=== PATIENT | female | born 1980 | race Caucasian/White ===

== ENCOUNTER 2016-10-29 08:19 | Emergency (ER) | payer OTHER ==
--- NOTE | ~2016-10-29 | CR173 ---
[facility] A Service of [facility] & [facility] RADIOLOGY TEXT RESULTS PATIENT: BAYRON FRAZIER LOCATION: [facility] : [birth year] UNIT #: [id number] AGE: [address]: Amrita Bah SEX: F ORDER DR: [id number] [facility] [address] [place], [place] [address] [id number] E MR#: [id number] Acc #: [id number] NAME: BAYRON FRAZIER : 1980 SEX: F STUDY DATE/TIME: 10/29/2016 8:21 UNIT: [facility] ROOM: STUDY DESCRIPTION: CR Knee 3 Views Rt Attending Physician: Amrita Bah P.A.-C. Ordering Physician: Amrita Bah P.A.-C. Primary Care Physician: No Primary Care Physician MEDICAL IMAGING REPORT This report is preliminary unless electronic signature is present EXAM Right knee INDICATIONS Right knee pain beginning today. Patient fell. FINDINGS AP lateral and sunrise views of the right knee were obtained. There is no fracture or effusion. The bones are normal. IMPRESSION Normal right knee series Dictated by... Edin Anderson M.D. THIS IS AN ELECTRONICALLY VERIFIED REPORT Edin Anderson M.D. at 10/30/2016 3:06 PM VAL/tabatha TD: 10/30/2016 00:45 JOB #: [id number] MEDICAL IMAGING REPORT COPY
[~2016-10-29 08:19] MED LIST: ALBUTEROL17 G1 IH; ALBUTEROL17 GM INH; AMOXIL500 MG PO; BACTRIM DS TABL1 TA1 PO; BACTRIM DS TABL1 TAB PO; BENTYL20 MG PO; CIPRO PO; DELSYM30 MG/5 M1 PO; DULCOLAX5 MG PO; FLEXERIL10 MG PO; FLONASE16 GM; IBUPROFEN800 MG PO; KEFLEX PO; KEFLEX500 M1 PO; KETOPROFEN PO; LORTAB 5/500 TA1 TA1 PO; MEDROL4 MG/DOSE- PO; MOBIC PO; NAPROSYN375 MG PO; NAPROSYN500 MG PO; NO MEDICATIONS; PEN-VEE K PO; PREDNISONE PO; TESSALON200 MG PO; TYLOX 5/500 CAP1 CAP PO; ULTRAM PO; VIBRAMYCIN100 M1 DOB; VICODIN 5/500 T1 TAB PO; VOLTAREN50 MG PO; ZOFRAN PO; ZYRTEC PO; ZYRTEC10 M2 PO; [UNRECOGNIZED DRUG - OTHER] PO
== END 2016-10-29 09:00 | disposition home or self-care (01) ==
LOC: CED 08:19
DX: S83.421A Sprain of lateral collateral ligament of right knee, initial encounter (principal); W19.XXXA Unspecified fall, initial encounter; Y92.009 Unspecified place in unspecified non-institutional (private) residence as the place of occurrence of the external cause
CPT/HCPCS: 29505; 73562; 99283

== ENCOUNTER 2016-11-21 17:18 | Observation (INO) | payer OTHER ==
--- NOTE | ~2016-11-21 | EKG ---
PATIENT: BAYRON FRAZIER UNIT #: [id number] Ventricular Rate: 58 BPM Atrial Rate: 58 BPM P-R Interval: 154 ms QRS Duration: 96 ms Q-T Interval: 456 ms QTC Calculation(Bezet): 447 ms P Magazine: 31 degrees Calculated R Magazine: 15 degrees Calculated T Magazine: 36 degrees Diagnosis Line: Sinus bradycardia Diagnosis Line: Otherwise normal ECG Diagnosis Line: When compared with ECG of 21-NOV-2016 13:14, Diagnosis Line: (unconfirmed) Diagnosis Line: No significant change was found Diagnosis Line: Confirmed by REECE JERNIGAN MD ([id number]) on 11/22/2016 Diagnosis Line: 11:32:54 PM INTERPRETING MD: DELON SAHU
--- NOTE | ~2016-11-21 | DS ---
Unit #: [id number] #: [id number] Patient: BAYRON FRAZIER [id number] [address] [address] [id number] I MR#: [id number] NAME: BAYRON FRAZIER ROOM: 55 Age: 36 Sex: F Admission Date: 11/21/2016 : 1980 Discharge Date: 11/22/2016 Attending Physician: Jered Acuna M.D. Primary Care Physician: No Primary Care Physician DISCHARGE SUMMARY This is a 36-year-old white female patient admitted with chest pains. She has no associated nausea, vomiting or dyspnea. She felt lightheaded. She has a history of hypertension and asthma. Home medications include hydrochlorothiazide and albuterol. SOCIAL HISTORY She smoked a pack of cigarettes a day for about 20 years. At the time of admission, blood pressure 136/87, heart rate 70 per minute. HEART - S1, S2 normal. LUNGS clear. ABDOMEN soft. No edema. INITIAL IMPRESSION 1. Chest pain, musculoskeletal in origin. 2. Hypertension. 3. Obesity. 4. Tobacco abuse. Acute MO is ruled out. The patient underwent a stress Cardiolite study. Study showed no aortic ischemia or infarct. Echocardiogram showed normal LV function. At this time, she will be discharged home on her previous home medications. DIET Healthy heart diet. ACTIVITY As tolerated. FOLLOWUP Follow up with PCP in two weeks. Discharge instructions took more than 30 minutes. Dictated by... Ramu Weaver Unit #: [id number] #: [id number] Patient: BAYRON FRAZIER TD: 11/23/2016 12:42 JOB #: [id number] DISCHARGE SUMMARY Page 1 of 1 X Tom Caballero MD X DISCHARGE SUMMARY
--- NOTE | ~2016-11-21 | BMI ---
[facility] Nutrition Therapy DATE: 11/22/16 Patient: BAYRON FRAZIER Physician: LESLIE Address: [address] [place] [address] Room/Bed: [address] [place] [address], Zip: [place] [address] Admit Date: 11/21/16 Date of : [birth year] Height: 5 4 Weight: 249 113.3 HIGH BMI NOTE: DX: 36 yo female admitted for CP ANTHROPOMETRICS: Ht: 5'4" Wt: 113.2 kg (249#) BMI: 42.9 DIET: NPO INTERVENTION: 1. NPO RECOMMENDATIONS: 1. Once medically feasible, advance diet as indicated to HH to promote gradual weight loss towards healthy BMI (19.0-25.0) or +/-10%IBW. RD will f/u per protocol. Respectfully, Sugar Moulton, [employer] Keiko Omer MS, RD, LD Food and Nutritional Services [facility] cc: client file
--- NOTE | ~2016-11-21 | EKG ---
PATIENT: BAYRON FRAZIER UNIT #: [id number] Ventricular Rate: 64 BPM Atrial Rate: 64 BPM P-R Interval: 146 ms QRS Duration: 82 ms Q-T Interval: 430 ms QTC Calculation(Bezet): 443 ms P [place]: 37 degrees Calculated R [place]: 41 degrees Calculated T [place]: 29 degrees Diagnosis Line: Normal sinus rhythm Diagnosis Line: Normal ECG Diagnosis Line: When compared with ECG of 21-NOV-2016 13:14, Diagnosis Line: (unconfirmed) Diagnosis Line: No significant change was found Diagnosis Line: Confirmed by REECE JERNIGAN MD ([id number]) on 11/22/2016 Diagnosis Line: 11:32:05 PM INTERPRETING MD: DELON SAHU
--- NOTE | ~2016-11-21 | ST ---
Unit #: [id number] #: [id number] Patient: BAYRON FRAZIER [id number] [address] [address] [id number] I MR#: [id number] NAME: BAYRON FRAZIER : 1980 SEX: F STUDY DATE/TIME: 11/22/2016 UNIT: C5B ROOM: 557 STUDY DESCRIPTION: Attending Physician: Jered Acuna M.D. CARDIOLOGY REPORT EXAM Nuclear study. DESCRIPTION OF PROCEDURE AND FINDINGS Baseline EKG normal sinus rhythm, nonspecific ST and T changes. Resting heart rate 65 per minute and blood pressure 158/93. This 36-year-old patient received 0.4 mg of Lexiscan intravenously during the test. No ischemic changes noted. No arrhythmias noted. Blood pressure was stable. INTERPRETATION 1. Nondiagnostic EKG during Lexiscan. 2. No arrhythmias noted. 3. Stable blood pressure during the test. 4. Correlate with a Cardiolite study. 1. Dictated by... Ramu Weaver/cristiano TD: 11/22/2016 16:59 JOB #: [id number] CARDIOLOGY REPORT Page 1 of 1 X Tom Caballero MD CARDIOLOGY REPORT
--- NOTE | ~2016-11-21 | TH ---
Unit #: [id number] #: [id number] Patient: BAYRON FRAZIER [id number] [address] [address] [id number] I MR#: [id number] NAME: BAYRON FRAZIER : 1980 SEX: F STUDY DATE/TIME: 11/22/2016 UNIT: C5B ROOM: 557 STUDY DESCRIPTION: Cardiolite Study Attending Physician: Jered Acuna M.D. CARDIOLOGY REPORT EXAM Cardiolite Study. DESCRIPTION OF PROCEDURE This 36-year-old patient received 0.4 mg of Lexiscan intravenously followed by 30.9 mCi of technetium-99 Cardiolite and images were obtained according to a standard SPECT protocol. For rest images, 10.19 mCi of Cardiolite was injected. Images were reviewed in both phases. FINDINGS Overall study quality is excellent. LV cavity size is normal in both images. There is no lung activity. RV is normal. Rotating raw data showed no significant artifact, soft tissue attenuation, or GI uptake. Review of SPECT images showed normal homogeneous radiotracer concentration throughout the myocardium in both the stress and rest images. Gated images showed normal LV wall thickening and wall motion with an estimated LV ejection fraction of 65%. IMPRESSION 1. Myocardial perfusion imaging is normal. 2. No evidence of ischemia or infarct. 3. Normal left ventricle dimensions. 4. Normal systolic left ventricular function with an estimated left ventricular ejection fraction of 65%. 1. Dictated by... Ramu Weaver/cristiano TD: 11/22/2016 17:24 JOB #: [id number] CARDIOLOGY REPORT Page 1 of 1 X Tom Caballero MD CARDIOLOGY REPORT
--- NOTE | ~2016-11-21 | HP ---
Unit #: [id number] #: [id number] Patient: BAYRON DAN [id number] [address] [place], [place] [address] [id number] I MR#: [id number] NAME: BAYRON DAN. ROOM: 55 Age: 36 Sex: F Admission Date: 11/21/2016 : 1980 Attending Physician: Jered Acuna M.D. Primary Care Physician: No Primary Care Physician HISTORY AND PHYSICAL CHIEF COMPLAINT Chest pain. PRIMARY CARE Dr. Dubois HISTORY OF PRESENT ILLNESS Ms. Dan is a 36-year-old female with no prior cardiac testing or no prior cardiac history. 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 On Monday, which was two days ago, at approximately 9 p.m. she had just gotten done eating a bowl of ice cream and got up to take the bowel to the kitchen when she had a sudden onset of lightheadedness and left sided chest pain. This was accompanied by a headache. She took four baby aspirin. She noticed that the pain was also left chest above the left breast area but no nausea, no vomiting or shortness of breath was noted. She felt as though she couldn't move where the pain was worse. The next day, which was yesterday, she thought she was feeling somewhat better although the pain had not completely resolved and she decided to go to [facility]. On the way to [facility], she developed some lightheadedness and the pain returned in an intense fashion. She then presented to the [facility] emergency room at 1:11 p.m. with the complaint of chest pain. She was given aspirin and nitroglycerin. She states that the pain currently is better, however is not completely resolved. It is worse with deep breaths or with certain movements. This information is received from patient interview as well as from record review. PRIOR CARDIAC TESTING HISTORY None. PAST MEDICAL HISTORY Includes: 1. Headache with history of cerebral arteriogram. 2. Right knee surgery. 3. Asthma. 4. Hypertension. ALLERGIES No known drug allergies. HOME MEDICATIONS They include: 1. Hydrochlorothiazide. 2. Albuterol. Unit #: [id number] #: [id number] Patient: BAYRON DAN SOCIAL HISTORY She has been a one pack a day smoker for the last 20 years. She denies the use of alcohol or drugs. FAMILY HISTORY Her mother is alive with diabetes. Her father is alive and well. She has a brother with "heart problems." REVIEW OF SYSTEMS GENERAL: Denies any fever, chills, flu-like symptoms or unintentional weight loss. SKIN: Denies any rashes, ulcerations or wounds. HEADACHES: Frequently, especially today. EYES: Denies any sudden change in vision. EARS: Denies any sudden change in hearing. BLEEDING: Denies epistaxis, hemoptysis, hematuria or melena. THROAT: Denies any problems swallowing. LUNGS: Denies any wheeze but does have an occasional cough and shortness of breath with activity. CHEST: Positive for pain as seen in HPI. No palpitations. She did have some tachycardia feelings two days ago. No PND or orthopnea; however, she states that her significant other has told her that she quits breathing and admits she snores very loudly. GI: Denies any nausea, vomiting. She has had some recent diarrhea. No constipation. GENITOURINARY: Denies any burning or urgency. EXTREMITIES: Denies any increased pain with walking or any unusual swelling. However, she does state that she has chronic right knee swelling since her surgery. NEURO: Denies any numbness, tingling, seizures, stroke-like symptoms, dizziness, unsteadiness or falls. PHYSICAL EXAMINATION VITAL SIGNS: Blood pressure is 136/87, heart rate 70, respirations 16, temperature is 97.9, 250 pounds. GENERAL: Well developed, well nourished female in no acute distress, resting in the bed. SKIN: No obvious rashes or ulcerations noted. EYES: PERRLA. No xanthelasma. ORAL: Poor dentition. Moist mucous membranes. No pallor. NECK: No carotid bruits auscultated bilaterally. No jugular vein distention. SPINE: No scoliosis. CHEST: Clear to auscultation bilaterally. No wheezes, rales or rhonchi. CARDIAC: S1 and S2 with distant tones. ABDOMEN: Soft, nontender. Positive bowel sounds. EXTREMITIES: Bilateral pedal pulses +1. No edema. NEURO: Alert and oriented x3. Speech is clear. No obvious neuro deficits. DIAGNOSTIC STUDIES IMAGING: Chest x-ray shows no acute findings and lungs are clear. LABORATORY: Sodium 138, potassium 3.9, glucose 127, BUN 12, creatinine 0.6, magnesium 2.1. Troponin less than 0.03 x2. BNP 16, hemoglobin 14.6, hematocrit 45.8, platelets 241 and white blood cell count 11. Unit #: [id number] #: [id number] Patient: BAYRON DAN IMPRESSION 1. Musculoskeletal chest pain. 2. Hypertension, on hydrochlorothiazide. 3. Obesity. 4. Positive tobacco abuse. 5. Deconditioning. PLAN Dr. Vargas has evaluated the patient at the bedside and feels as though she has atypical chest pain. He wants to complete a 2D echocardiogram and Lexiscan Cardiolite stress test due to her risk profile for coronary artery disease. This includes smoking, obesity, deconditioning and hypertension. Further recommendations will be based on the above mentioned testing. She will also complete a 2D echocardiogram. Dictated by Gabriela Bhardwaj.P.R.N. for Curt Vargas M.D. Tamara TD: 11/22/2016 10:44 JOB #: [id number] HISTORY AND PHYSICAL Page 1 of 1 X X HISTORY AND PHYSICAL
--- NOTE | ~2016-11-21 | CR72 ---
[facility] A Service of [facility] & [facility] RADIOLOGY TEXT RESULTS PATIENT: BAYRON FRAZIER LOCATION: [facility] : [birth year] UNIT #: [id number] AGE: [address]: Rody Calderon MD SEX: F ORDER DR: [id number] [facility] [address] [place], [place] [address] [id number] E MR#: [id number] Acc #: [id number] NAME: BAYRON FRAZIER : 1980 SEX: F STUDY DATE/TIME: 11/21/2016 17:13 UNIT: [facility] ROOM: STUDY DESCRIPTION: CR Chest Single View Portable Attending Physician: Rody Calderon M.D. Ordering Physician: Rody Calderon M.D. Primary Care Physician: Primary Care Physician No MEDICAL IMAGING REPORT This report is preliminary unless electronic signature is present EXAM Single view chest, 11/21/2016 INDICATION Chest pain and lightheadedness for 2 days. FINDINGS Single portable AP view of the chest compared to 08/21/2016. Heart and mediastinal contours is normal. The lungs are clear. No pleural effusion. IMPRESSION No acute cardiopulmonary findings. Dictated by... Osmar Mckeon M.D. THIS IS AN ELECTRONICALLY VERIFIED REPORT Osmar Mckeon M.D. at 11/21/2016 10:07 PM CARLO/nuha TD: 11/21/2016 21:05 JOB #: [id number] MEDICAL IMAGING REPORT Page 1 of 1 COPY
--- NOTE | ~2016-11-21 | EKG ---
PATIENT: BAYRON FRAZIER UNIT #: [id number] Ventricular Rate: 78 BPM Atrial Rate: 78 BPM P-R Interval: 150 ms QRS Duration: 82 ms Q-T Interval: 396 ms QTC Calculation(Bezet): 451 ms P [place]: 29 degrees Calculated R [place]: 9 degrees Calculated T [place]: 30 degrees Diagnosis Line: Normal sinus rhythm Diagnosis Line: Normal ECG Diagnosis Line: When compared with ECG of 03-AUG-2014 10:16, Diagnosis Line: No significant change was found Diagnosis Line: Confirmed by REECE JERNIGAN MD ([id number]) on 11/22/2016 Diagnosis Line: 11:16:37 PM INTERPRETING MD: DELON SAHU
[2016-11-21 16:30] LABS: BASOPHIL# 0.1 X10e3 (0-0.3); BASOPHIL% 0.5 % (0-2.5); EOSINOPHIL# 0.2 X10e3 (0-0.7); EOSINOPHIL% 1.9 % (0.0-7.0); HEMATOCRIT 45.8 % (35.0-45.0); HEMOGLOBIN 14.6 gm/dL (12.0-16.0); LYMPHOCYTE# 2.9 X10e3 (1.0-3.5); LYMPHOCYTE% 26.1 % (17.0-45.0); MEAN CORPUSCULAR HEMOGLOBIN 27.1 PG (28-34); MEAN CORPUSCULAR HGB CONC 31.8 g/dL (30-36); MEAN PLATELET VOLUME 9.1 FL (6.5-11.5); MONOCYTE# 0.3 X10e3 (0-1.0); MONOCYTE% 3.2 % (3.0-12.0); NEUTROPHIL# 7.5 X10e3 (1.5-7.1); NEUTROPHIL% 68.3 % (40-75); PLATELET COUNT 241 X10e3 (140-420); RED BLOOD COUNT 5.38 X10e (3.90-5.30); RED CELL DISTRIBUTION WIDTH 16.5 % (11.0-15.5)
[2016-11-21 16:32] LABS: DIFF IND NO
[2016-11-21 16:49] LABS: POC - CKMB 1.5 ng/mL (0.0-7.9); POC - TROPONIN <0.05 ng/mL (<=0.05)
[2016-11-21 17:00] LABS: ALKALINE PHOSPHATASE 64 U/L (32-92); ALT (SGPT) 28 U/L (10-40); AST (SGOT) 18 U/L (10-42); BILIRUBIN,TOTAL 0.5 mg/dL (0.2-2.0); BLOOD UREA NITROGEN 7 mg/dL (9-23); CALCIUM SERUM 9.2 mg/dL (8.4-10.2); CARBON DIOXIDE 24 mmol/L (22-31); CHLORIDE 100 mmol/L (100-111); CREATININE SERUM 0.4 mg/dL (0.6-1.4); GLOM FILT RATE Estimated 132.2 mL/min (>60); GLUCOSE FASTING 160 mg/dL (70-110); POTASSIUM 3.1 mmol/L (3.5-5.1); PROTEIN TOTAL SERUM 7.5 g/dL (6.0-8.3); SODIUM 134 mmol/L (135-145)
[2016-11-21 17:02] LABS: BILIRUBIN, DIRECT <0.1 mg/dL (0.0-0.2); BILIRUBIN,INDIRECT 0.4 mg/dL (0.0-0.9)
[2016-11-21 18:23] LABS: POC - CKMB <1.0 ng/mL (0.0-7.9); POC - TROPONIN <0.05 ng/mL (<=0.05)
[2016-11-21] MEDS ORDERED: HYDROCHLOROTH12.5 M1 PO (22:06)
[2016-11-21] MEDS ORDERED: ALBUTEROL17 GM INH (22:07)
[2016-11-22 07:14] LABS: CALCIUM SERUM 9.1 mg/dL (8.4-10.2); CREATININE SERUM 0.6 mg/dL (0.6-1.4); GLOM FILT RATE Estimated 115.6 mL/min (>60); MAGNESIUM 2.1 mg/dL (1.6-3.0); POTASSIUM 3.9 mmol/L (3.5-5.1)
[2016-11-22 07:35] LABS: %MB 1.7 % (0.0-4.0); MB 1.8 ng/ml
== END 2016-11-22 16:54 | disposition home or self-care (01) ==
LOC: CED 17:18 → CEDOF 22:00 → C5B 11-22 08:12
PROVIDERS: Emergency Medicine; Internal Medicine Cardiovascular Disease
DX: R07.89 Other chest pain (principal); I51.7 Cardiomegaly; I10 Essential (primary) hypertension; E66.9 Obesity, unspecified; Z68.41 Body mass index [BMI] 40.0-44.9, adult; F17.210 Nicotine dependence, cigarettes, uncomplicated; J45.909 Unspecified asthma, uncomplicated; Z98.890 Other specified postprocedural states; Z79.899 Other long term (current) drug therapy
CPT/HCPCS: 71010; 78452; 80048; 80076; 82550; 82553; 82947; 83735; 83880; 84484; 84703; 85025; 93005; 93017; 93306; 99285; A9500; G0378; J2785

== ENCOUNTER 2017-03-17 15:13 | Emergency (ER) | payer OTHER ==
[~2017-03-17] VITALS: Ht 162.6 cm; Wt 136.1 kg
--- NOTE | ~2017-03-17 | CR170 ---
[facility] Service of [facility] & [facility] RADIOLOGY TEXT RESULTS PATIENT: BAYRON FRAZIER LOCATION: [facility] : [birth year] UNIT #: [id number] AGE: [address]: Brianne Yoon APRN SEX: F ORDER DR: [id number] [facility] [address] [place], [place] [address] [id number] E MR#: [id number] Acc #: [id number] NAME: BAYRON FRAZIER : 1980 SEX: F STUDY DATE/TIME: 03/17/2017 16:03 UNIT: [facility] ROOM: STUDY DESCRIPTION: CR Knee 2 Views Rt Attending Physician: Brianne Yoon A.P.R.N. Ordering Physician: Ed Doctor [id number] [facility] Primary Care Physician: Titus Dubois M.D. MEDICAL IMAGING REPORT This report is preliminary unless electronic signature is present EXAM Right knee series 03/17/2017 HISTORY Hit on baseboard of bed. Fall from bed. Hit on baseboard happened 3 days ago. Pain swelling. FINDINGS AP lateral, sunrise views of the right knee are presented. There is no traumatic fracture or malalignment. The joint spaces are intact. No soft tissue defect, subcutaneous air or radiodense foreign body. The may be a trace effusion in the suprapatellar recess. This could be a projectional artifact. Dictated by... Nicko Sheffield M.D. THIS IS AN ELECTRONICALLY VERIFIED REPORT Nicko Sheffield M.D. at 03/18/2017 2:37 PM ADA/tabatha TD: 03/17/2017 23:38 JOB #: [id number] MEDICAL IMAGING REPORT Page 1 of 1 COPY
[~2017-03-17 15:13] MED LIST changes: +HYDROCHLOROTH12.5 M1 PO
== END 2017-03-17 18:27 | disposition home or self-care (01) ==
LOC: CFTX 15:13 → CED 15:13 → CFTX 16:07
DX: S80.01XA Contusion of right knee, initial encounter (principal); I10 Essential (primary) hypertension; F17.210 Nicotine dependence, cigarettes, uncomplicated; W01.10XA Fall on same level from slipping, tripping and stumbling with subsequent striking against unspecified object, initial encounter; Y92.009 Unspecified place in unspecified non-institutional (private) residence as the place of occurrence of the external cause
CPT/HCPCS: 73560; 99283

== ENCOUNTER 2017-04-19 10:05 | Emergency (ER) | payer OTHER ==
[~2017-04-19] VITALS: Ht 162.6 cm; Wt 127.0 kg
--- NOTE | ~2017-04-19 | CR72 ---
[facility] A Service of [facility] RADIOLOGY TEXT RESULTS PATIENT: BAYRON FRAZIER LOCATION: [facility] : [birth year] UNIT #: [id number] AGE: [address]: Maged South MD SEX: F ORDER DR: [id number] [facility] [address] [place], [place] [address] [id number] E MR#: [id number] Acc #: [id number] NAME: BAYRON FRAZIER : 1980 SEX: F STUDY DATE/TIME: 04/19/2017 10:52 UNIT: [facility] ROOM: STUDY DESCRIPTION: CR Chest Single View Portable Attending Physician: Maged South M.D. Ordering Physician: Maged South M.D. Primary Care Physician: Titus Dubois M.D. MEDICAL IMAGING REPORT This report is preliminary unless electronic signature is present EXAM Chest 04/19/2017 1052 hours HISTORY 36-year-old woman with 3-day history of cough, body aches, nausea, vomiting and diarrhea. History of asthma and hypertension. COMPARISON 11/21/2016 FINDINGS Portable upright chest is slightly rotated. Allowing for this, the heart size is normal and the aorta is minimally tortuous. There is basilar vascular crowding but no evidence of edema, pneumonia or effusion. No free air seen in the abdomen. IMPRESSION Slightly low lung volumes with rotation. The heart size is within normal limits with stable mildly tortuous aorta. There is basilar vascular crowding. Lungs are otherwise clear. No effusion, pneumothorax or free air in the abdomen. Dictated by... Maddie Corral M.D. THIS IS AN ELECTRONICALLY VERIFIED REPORT Maddie Corral M.D. at 04/19/2017 2:31 PM DEBM/rosetta TD: 04/19/2017 12:42 JOB #: [id number] [facility] A Service of [facility] RADIOLOGY TEXT RESULTS PATIENT: BAYRON FRAZIER LOCATION: [facility] : 76 UNIT #: [id number] AGE: [address]: Maged South MD SEX: F ORDER DR: MEDICAL IMAGING REPORT Page 1 of 1 COPY
== END 2017-04-19 12:07 | disposition home or self-care (01) ==
LOC: CED 10:05
DX: J06.9 Acute upper respiratory infection, unspecified (principal); F17.210 Nicotine dependence, cigarettes, uncomplicated; Z79.899 Other long term (current) drug therapy
CPT/HCPCS: 71010; 87651; 99283